=== PATIENT | male | born 1930 | race Caucasian/White ===

== ENCOUNTER 2017-10-03 08:18 | Emergency (ER) | payer OTHER ==
[~2017-10-03] VITALS: Ht 190.5 cm; Wt 90.7 kg
[~2017-10-03 08:18] MED LIST: ACE3 PO; ASP325 PO; DILT240C76 PO; FLEC150T14 PO; FLUINH INH; KETO10TA PO; LOSA50TA73 PO; MULT1CAP59 PO; [UNRECOGNIZED DRUG - CODE] PO
[2017-10-03] MEDS ORDERED: ATOR10TA24 PO (08:29)
--- NOTE | 2017-10-03 08:44 | EKG ---
FACILITY: [facility] - [place] PATIENT NAME: QUINN HART : [id number] MR: [id number] V: [id number] EXAM DATE: ORDERING PHYSICIAN: PROSPER HERNANDEZ TECHNOLOGIST: Bj Ramos Reason : Blood Pressure : / mmHG Vent. Rate : 069 BPM Atrial Rate : 055 BPM P-R Int : 000 ms QRS Dur : 090 ms QT Int : 404 ms P-R-T Axes : 000 -60 072 degrees QTc Int : 432 ms Atrial fibrillation Left axis Nonspecific interventricular conduction delay Nonspecific ST abnormality Abnormal ECG No previous ECGs available Confirmed by SELMA PISANO ([id number]) on 10/03/2017 2:06:20 PM Referred By: Confirmed By:SELMA PISANO
[2017-10-03] MEDS ORDERED: ASPIRIN 81 MG CHEW PO ONE (08:45)
[2017-10-03] MEDS ORDERED: RIVA20TA PO (08:47)
[2017-10-03 08:48] LABS: PLATELET COUNT, AUTOMATED 168 K/uL (150-450)
--- NOTE | 2017-10-03 08:53 | ER Report ---
History and Physical Time Seen By MD: 08:25 Hx. 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 Patient states he awoke this morning and had some persistent chest discomfort again parasternal nonradiating. Patient has no additional complaints at this time. Patient has a history of A. fib was on metoprolol until approximately a year ago and was removed off metoprolol A. fib is confirmed on EKG REVIEW OF SYSTEMS: Respiratory: No cough, no dyspnea. Cardiovascular: Chest pain or palpitation Gastrointestinal: No vomiting, no abdominal pain. Musculoskeletal: No back pain. Remainder of the 14 system rev: Yes Allergies: Coded Allergies: levofloxacin (Verified Allergy, Intermediate, "SPACEY FEELING", 10/03/17) Home Meds Reported Medications Rivaroxaban 20 Mg (XARELTO 20 MG) 20 Mg Tablet, 20 MG PO, TAB 10/03/17 Atorvastatin Calcium (LIPITOR) 10 Mg Tablet, 1 TAB PO QDAY, TAB 10/03/17 Multivitamins (Multivitamin) 1 Each Capsule, 1 EACH PO DAILY, 0 Refills 09/19/11 Fluticasone Propionate (Flovent Hfa 110 Mcg) 12 Gm Aer.w.adap, 1 PUFF INH BID, 0 Refills 09/19/11 Discontinued Reported Medications Aspirin (Aspirin) 325 Mg Tab, 325 MG PO ONCE, 0 Refills 09/19/11 Flecainide Acetate (Flecainide Acetate) 150 Mg Tablet, 150 MG PO BID, 0 Refills 09/19/11 Losartan Potassium (Losartan Potassium) 50 Mg Tablet, 50 MG PO DAILY, 0 Refills 09/19/11 Reviewed Nurses Notes: Yes Old Medical Records Reviewed: Yes Hx Smoking: No Hx Substance Use Disorder: No Hx Alcohol Use: No Constitutional Vital Sign - Last 24 Hours 10/03/17 10/03/17 10/03/17 10/03/17 08:23 08:23 08:30 08:48 Temp 97.6 Pulse 72 60 Resp 20 9 B/P (MAP) 195/98 195/98 (130) 179/112 (134) Pulse Ox 94 94 O2 Delivery Room Air 10/03/17 10/03/17 10/03/17 09:18 09:30 09:44 Pulse 61 56 Resp 11 22 B/P (MAP) 159/96 (117) Pulse Ox 94 98 Physical Exam General Appearance: The patient is alert, has no immediate need for airway protection and no current signs of toxicity. [ ] Eyes: Pupils equal and round no injection. Respiratory: Chest is non tender, lungs are clear to auscultation. Cardiac: regular rate and rhythm [ ] Gastrointestinal: Abdomen is soft and non tender, no masses, bowel sounds normal. Musculoskeletal: Neck: Neck is supple and non tender. Extremities have full range of motion and are non tender. Skin: No rashes or lesions. [ ] DIFFERENTIAL DIAGNOSIS: After history and physical exam differential diagnosis was considered for PR acute coronary syndrome pulmonary embolus aortic dissection muscle strength Medical Decision Making Data Points Result Diagram: 10/03/1782710/03/17827 Laboratory Hematology Test 10/03/17 08:28 10/03/17 09:52 Red Blood Count 5.85 M/uL (4.00-5.60) Mean Corpuscular Volume 93.1 fL (80.0-96.0) Mean Corpuscular Hemoglobin 31.1 pg (26.0-33.0) Mean Corpuscular Hemoglobin Concent 33.5 g/dL (32.0-36.0) Red Cell Distribution Width 14.3 % (11.5-14.5) Mean Platelet Volume 8.4 fL (7.2-11.1) Neutrophils (%) (Auto) 58.1 % (39.4-72.5) Lymphocytes (%) (Auto) 26.2 % (17.6-49.6) Monocytes (%) (Auto) 9.0 % (4.1-12.4) Eosinophils (%) (Auto) 5.6 % (0.4-6.7) Basophils (%) (Auto) 1.1 % (0.3-1.4) Nucleated RBC Relative Count (auto) 0.1 /100WBC Neutrophils # (Auto) 3.7 K/uL (2.0-7.4) Lymphocytes # (Auto) 1.7 K/uL (1.3-3.6) Monocytes # (Auto) 0.6 K/uL (0.3-1.0) Eosinophils # (Auto) 0.4 K/uL (0.0-0.5) Basophils # (Auto) 0.1 K/uL (0.0-0.1) Nucleated RBC Absolute Count (auto) 0.00 K/uL D-Dimer Quantitative (PE/DVT) 0.36 ug/ml (0-0.50) Sodium Level 137 mmol/L (137-145) Potassium Level 3.9 mmol/L (3.5-5.0) Chloride Level 99 mmol/L (98-107) Carbon Dioxide Level 27 mmol/L (22-30) Blood Urea Nitrogen 22 mg/dl (9-21) Creatinine 1.10 mg/dl (0.66-1.25) Glomerular Filtration Rate Calc > 60.0 Random Glucose 92 mg/dl (75-110) Calcium Level 9.7 mg/dl (8.4-10.2) Total Bilirubin 1.3 mg/dl (0.2-1.3) Aspartate Amino Transf (AST/SGOT) 31 U/L (0-35) Alanine Aminotransferase (ALT/SGPT) 28 U/L (0-56) Alkaline Phosphatase 83 U/L (0-126) Total Protein 7.6 gm/dl (6.3-8.2) Albumin 4.3 g/dl (3.5-5.0) Troponin I < 0.012 ng/ml Chemistry Test 10/03/17 08:28 10/03/17 09:52 White Blood Count 6.4 k/uL (4.5-11.0) Red Blood Count 5.85 M/uL (4.00-5.60) Hemoglobin 18.2 g/dL (14.0-18.0) Hematocrit 54.4 % (42.0-52.0) Mean Corpuscular Volume 93.1 fL (80.0-96.0) Mean Corpuscular Hemoglobin 31.1 pg (26.0-33.0) Mean Corpuscular Hemoglobin Concent 33.5 g/dL (32.0-36.0) Red Cell Distribution Width 14.3 % (11.5-14.5) Platelet Count 168 K/uL (150-450) Mean Platelet Volume 8.4 fL (7.2-11.1) Neutrophils (%) (Auto) 58.1 % (39.4-72.5) Lymphocytes (%) (Auto) 26.2 % (17.6-49.6) Monocytes (%) (Auto) 9.0 % (4.1-12.4) Eosinophils (%) (Auto) 5.6 % (0.4-6.7) Basophils (%) (Auto) 1.1 % (0.3-1.4) Nucleated RBC Relative Count (auto) 0.1 /100WBC Neutrophils # (Auto) 3.7 K/uL (2.0-7.4) Lymphocytes # (Auto) 1.7 K/uL (1.3-3.6) Monocytes # (Auto) 0.6 K/uL (0.3-1.0) Eosinophils # (Auto) 0.4 K/uL (0.0-0.5) Basophils # (Auto) 0.1 K/uL (0.0-0.1) Nucleated RBC Absolute Count (auto) 0.00 K/uL D-Dimer Quantitative (PE/DVT) 0.36 ug/ml (0-0.50) Glomerular Filtration Rate Calc > 60.0 Calcium Level 9.7 mg/dl (8.4-10.2) Total Bilirubin 1.3 mg/dl (0.2-1.3) Aspartate Amino Transf (AST/SGOT) 31 U/L (0-35) Alanine Aminotransferase (ALT/SGPT) 28 U/L (0-56) Alkaline Phosphatase 83 U/L (0-126) Total Protein 7.6 gm/dl (6.3-8.2) Albumin 4.3 g/dl (3.5-5.0) Troponin I < 0.012 ng/ml Coagulation Test 10/03/17 08:28 D-Dimer Quantitative (PE/DVT) 0.36 ug/ml ED Course/Re-evaluation ED Course [facility] medical course medical decision-making a 7-year-old male history of PR comes in with chest pain which subsequently resolved without intervention patient's workup is negative negative troponins 2 EKG showed a flipped A. 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 I spoken great detail he is comfortable with him going home due to the negative workup I will discharge him with a standard outpatient follow-up with cardiology Spoke with patient numerous occasions advised him to stay in the emergency department he is declining opportunity wants to go home I verified this with cardiology of this would be reasonable to do a confirm patient be discharged Decision to Disposition Date: Oct 03, 2017 Decision to Disposition Time: 12:25 Depart Departure Latest Vital Signs Vital Signs Date Time Temp Pulse Resp B/P (MAP) Pulse Ox O2 Delivery O2 Flow Rate FiO2 10/03/17 09:44 56 22 98 10/03/17 09:30 159/96 (117) 10/03/17 08:23 97.6 Room Air Impression: Primary Impression: Chest pain Condition: Improved Disposition: HOME OR SELF-CARE Patient Instructions: Chest Pain (ED) Additional Instructions: Follow-up with cardiology PROSPER HERNANDEZ MD Oct 03, 2017 08:53
--- NOTE | 2017-10-03 09:35 | RADIOLOGY IMAGING REPORT ---
FACILITY: [facility] - [place] PATIENT NAME: Apolinar Wiseman : 1930 MR: [id number] V: [id number] EXAM DATE: ORDERING PHYSICIAN: PROSPER HERNANDEZ TECHNOLOGIST: Location: [facility] Patient: Apolinar Wiseman : 1930 Visit/Account:[id number] Date of Sevice: 10/03/2017 CHEST PA AND LAT INDICATION: cp COMPARISON: None available FINDINGS: The cardiac silhouette is mildly enlarged. There is no focal infiltrate or lobar consolidation. Lung volumes are mildly hyperexpanded. There is no pneumothorax or pleural effusion. Degenerative changes are noted throughout the thoracic spine. IMPRESSION: 1. No acute cardiopulmonary process. Report Dictated By: Js Hernandez at 10/03/2017 9:31 AM Report E-Signed By: Js Hernandez at 10/03/2017 9:32 AM WSN:[id number]
[2017-10-03 12:30] VITALS: BP 177/98
== END 2017-10-03 12:37 | disposition home or self-care (01) ==
LOC: ER 08:32
DX: R07.89 Other chest pain (principal)
CPT/HCPCS: 71046; 82040; 82247; 82310; 82374; 82435; 82565; 82947; 84075; 84132; 84155; 84295; 84450; 84460; 84484; 84520; 85025; 85379; 93005; 99284

== ENCOUNTER → 2018-04-26 | Outpatient (CLI) | payer OTHER ==
[~2018-04-26] MED LIST changes: +ATOR10TA24 PO; +FLUT16SP19 NS; +LEVO88TA43 PO; +MONT10TA4 PO; +OMEP40CA48 PO; +RANI-366 PO; +RIVA20TA PO
--- NOTE | 2018-04-26 15:50 | RADIOLOGY IMAGING REPORT ---
FACILITY: [facility] - [place] PATIENT NAME: Apolinar Wiseman : 1930 MR: [id number] V: [id number] EXAM DATE: ORDERING PHYSICIAN: TIFFANIE BOOTH TECHNOLOGIST: Location: [facility] Patient: Apolinar Wiseman : 1930 Visit/Account:[id number] Date of Sevice: 04/26/2018 CHEST W/O CONTRAST Provided history: Interstitial lung disease Additional pertinent history: none TECHNIQUE: Spiral scan was obtained from the lower neck through the lung bases without intravenous co ntrast. Source images were reformatted in the coronal and sagittal planes. Additional series performed today: High-resolution thin section axial scans were obtained at non-co ntiguous intervals during inspiration and expiration. One of the following dose optimization techniques was utilized in the performance of this exam: Autom ated exposure control; adjustment of the mA and/or kV according to the patient's size; or use of an i terative reconstruction technique. Specific details can be referenced in the facility's radiology CT exam operational policy. COMPARISON STUDIES: 03/22/12 FINDINGS: Lungs / pleura / chris: General screening demonstrates no consolidation or pleural fluid. No suspect nodules. The high-resolution study reveals no dominant pattern of interstitial lung disease. Subpleural reticu lar densities in the left lung base on prior study are much less prominent now. Specifically, I do no t identify thickening of interlobular septae or a centrilobular nodular pattern. There is only minor patchy groundglass attenuation. This is not a dominant pattern. No significant small airway obstructi on on the expiratory phase. There are no features typical of UIP. Specifically, there is no subpleural reticular density, tractio n bronchiectasis or honeycombing in either lung base. There are minor reticular densities dependently in the mid left lung and these become less prominent in the prone position. Central airways are widely patent. Lower neck: negative Mediastinum: negative Heart / pericardium: Small nondependent pericardial effusion. Advanced three-vessel coronary artery calcification also includes the left main. Vessels: negative Lymph nodes: negative Body wall: negative Upper abdomen: negative Bones: negative IMPRESSION: 1. There is no dominant pattern of interstitial lung disease. Typical features of UIP are not present . 2. No acute pulmonary disease. 3. Small nondependent pericardial effusion, little changed prior study and probably not significant. 4. Advanced coronary artery calcification, progressive from prior. Report Dictated By: Jayant Scanlon MD at 04/26/2018 3:30 PM Report E-Signed By: Jayant Scanlon MD at 04/26/2018 3:46 PM WSN:[id number]
== END ==
LOC: CT 04-11 01:24
PROVIDERS: ATTEND Internal Medicine
DX: I25.10 Atherosclerotic heart disease of native coronary artery without angina pectoris (principal); I31.3 Pericardial effusion (noninflammatory)
CPT/HCPCS: 71250

== ENCOUNTER → 2018-10-30 | Outpatient (REF) | payer OTHER | LOC: ZZSENDIN 15:43 | PROVIDERS: ATTEND Urology | DX: N39.0 Urinary tract infection, site not specified (principal); B96.89 Other specified bacterial agents as the cause of diseases classified elsewhere | CPT/HCPCS: 87077; 87088; 87186 ==